=== PATIENT | female | born 1975 | race Caucasian/White ===

== ENCOUNTER 2022-10-28 17:55 | Emergency (ER) | payer BC, SELFPAY ==
[2022-10-28 17:56] VITALS: BP 176/99; PULSE 91; RESP 16; TEMP 36.5; O2SAT 99; BMI 36.6
--- NOTE | 2022-10-28 18:01 | EKG12_ITS ---
Test Reason : CP Blood Pressure : / mmHG Vent. Rate : 086 BPM Atrial Rate : 086 BPM P-R Int : 144 ms QRS Dur : 088 ms QT Int : 352 ms P-R-T Axes : 053 047 007 degrees QTc Int : 421 ms Normal sinus rhythm with sinus arrhythmia Nonspecific ST abnormality Abnormal ECG Confirmed by NJ CATHERINE ([id number]), communications editor BAR DAIGLE ([id number]) on 11/03/2022 7:32:58 AM Referred By: Jimmy Kaye Confirmed By:N[place] CATHERINE
--- NOTE | 2022-10-28 18:05 | NURSING ---
NO OLD EKGS
--- NOTE | 2022-10-28 18:10 | RAD_ITS ---
INDICATION: chest pain EXAMINATION/TECHNIQUE: X-RAY - XR Chest 1 View COMPARISON: None. FINDINGS: LINES/DEVICES: None. LUNGS: No consolidation, edema or effusion. No pneumothorax. MEDIASTINUM AND CARDIOVASCULAR STRUCTURES: Cardiac silhouette not enlarged. Central airways and mediastinal contour are unremarkable. BONES AND SOFT TISSUES: Unremarkable. RAD/Chest 1 View (Portable) IMPRESSION: No radiographic evidence of acute cardiopulmonary disease. Electronically Signed: Ab Espinal DO at 18:43 EDT ,
[2022-10-28 18:21] LABS: Absolute Lymphocyte Count 1.88 X10^3/uL (0.83-4.51); Absolute Neutrophil Count 4.7 X10^3/uL (2.0-7.7); Basophil# 0.06 X10^3/uL; Basophil% 0.8 % (0-1); Eosinophil# 0.39 X10^3/uL; Eosinophils% 4.9 % (0-5); Hematocrit 40.3 % (37-47); Hemoglobin 12.4 g/dL (12.0-15.0); Lymphocyte # 1.88 X10^3/ul (0.83-4.51); Lymphocyte % 23.6 % (19-41); Mean Corp Hgb Conc 30.8 g/dL (32-36); Mean Corpuscular Hgb 23.5 pg (27.0-32.0); Mean Corpuscular Volume 76.5 fL (81-99); Monocyte# 0.96 X10^3/uL; NRBC Flagged by Analyzer 0 % (0-5); Neutrophil # 4.65 X10^3/uL (2.7-7.7); Neutrophil % 58.3 % (47-70); Platelet Count 235 K/mm3 (150-450); RBC Distribution Width CV 16.9 % (11.6-14.6); RBC Distribution Width SD 46.3 fl (35.1-43.9); Red Blood Count 5.27 M/mm3 (4.2-5.4)
[2022-10-28] MEDS: Aspirin 81 MG TAB.CHEW 324 MG PO (18:21)
[2022-10-28 18:22] VITALS: O2SAT 97
[2022-10-28 18:39] LABS: Anion Gap 2 (5-15); BUN 10 mg/dL (7-18); BUN/Creat Ratio 12.5 RATIO (10-20); Calcium,Total 9.7 mg/dL (8.5-10.1); Chloride 110 mmol/L (98-107); EST Glomerular Filtration Rate 82 mL/min (>60); Est Glom Filt Rate - Afr Amer 99 mL/min (>60); Estimated Creatinine Clearance 79.07 ml/min; Glucose 110 mg/dL (74-106); Potassium 3.5 mmol/L (3.5-5.1); Sodium Level 139 mmol/L (136-145); Troponin-I HS 4 pg/mL (3.0-54.0)
[2022-10-28 19:08] VITALS: BP 151/77; PULSE 76; O2SAT 96
--- NOTE | 2022-10-28 19:20 | EDS_ITS ---
HPI History of Present Illness Chief Complaint: Chest Pain Informant: patient Onset/Context/Timing Onset: Days (2) Activity at onset: gradual Timing: Intermittent Location: Substernal Worsened By: Nothing Relieved By: Nothing Associated Symptoms: Positive for Palpitations; Negative for Nausea, Vomiting, Diaphoresis, Dyspnea, Cough, Fever, Lightheadedness or Acid Reflux Narrative Narrative: Patient presents with chest pain that has been intermittent over the last 2 da ys. Patient states it comes on gradually. Patient describes it as a tightness. Patient states it is over the substernal area. Patient states nothing makes it better nothing makes it worse. Patient states she does feel some palpitations at times. Patient denies any nausea or vomiting. Patient denies any diaphoresis. Patient denies any shortness of breath or cough. CVD Risk Factors: Negative for Hypertension, Diabetes, Hypercholesterolemia, Family History 1' </=55 or Smoking PE Risk Factors: Positive for Cancer; Negative for Recent Travel/Surgery, Recent Immobilization, Prior DVT or PE or OCP + Smoking + >/=35 PFSH PFSH Medical History (Updated 10/28/22 @ 19:[address] Jimmy Kaye DO) Breast cancer Hypothyroidism Allergy/AdvReac Type Severity Reaction Status Date / Time No Known Allergies Allergy Verified 10/28/22 17:57 Surgical History (Updated 10/28/22 @ 19:[address] Jimmy Kaye DO) Hx of breast biopsy Social History Smoking Status: Never smoker ROS ROS ED Constitutional Constitutional ED: Denies chills or fever(s) Eyes Eyes: Denies blurry vision or change in vision ENT ENT ED: Denies rhinorrhea or sore throat Cardiovascular Cardiovascular: Reports chest pain and palpitations Respiratory/Chest Respiratory/Chest: Denies cough or dyspnea Gastrointestinal Gastrointestinal: Denies abdominal pain, nausea or vomiting Genitourinary Genitourinary ED: Denies dysuria or hematuria Musculoskeletal Musculoskeletal: Denies back pain or neck pain Integumentary Denies abscess or rash Neurologic Neurologic: Denies headache(s) or weakness Allergic/Immunologic Allergic/Immunologic ED: Denies mouth swelling or urticaria EXAM Physical Exam Const Vital Signs: 10/28/22 17:56 10/28/22 18:22 10/28/22 18:23 Temperature 97.7 F L Temperature Source Temporal Pulse Rate 91 Respiratory Rate 16 Respiratory Effort Normal Non-Labored Blood Pressure 176/99 H Blood Pressure Mean 124 Pulse Ox 99 97 Oxygen Delivery Method Room Air Room Air 10/28/22 19:08 Temperature Temperature Source Pulse Rate 76 Respiratory Rate Respiratory Effort Blood Pressure 151/77 H Blood Pressure Mean 101 Pulse Ox 96 Oxygen Delivery Method Room Air Positive well nourished, well developed and obese General Appearance ED: well developed and NAD Nutritional Appearance: obese HEENT normocephalic and atraumatic Eyes PERRL and EOMs intact bilaterally Neck supple and no JVD Chest Wall palpation of chest normal Resp normal respiratory effort and clear to auscultation bilaterally Effort and Inspection: Negative for respiratory distress Cardio regular rate, regular rhythm and no murmurs GI normal to inspection, nondistended, normoactive bowel sounds, soft to palpation, non-tender and non-distended Extremity normal to inspection General Extremety ED: Negative for edema or tenderness General Extremity: Negative for edema Neuro oriented x3, CN's II-XII intact bilaterally and no sensory deficits noted Sensorium / Orientation: awake and alert Motor Exam: strength 5/5 throughout Psych mental status grossly normal Heart Score History: Slightly/Non-Suspicious ECG: Nonspecific Repolarization Age: >45 - <65 years Risk Factors: No Risk Factors Troponin: </= Normal Limit Score: 2 MDM MDM MDM Narrative Medical decision making narrative: Differential diagnosis includes cardiac dysrhythmia, cardiac ischemia, anxiety, musculoskeletal pain, and GERD. Patient has a Wells score of 1 and is PERC negative. I do not feel this is from a pulmonary embolism. EKG will be obtained to assess for cardiac dysrhythmia and cardiac ischemia. Chest x-ray will be obtained to assess for pneumonia and pneumothorax. CBC will be obtained to assess for anemia and leukocytosis. Basic metabolic profile will be obtained to assess for electrolyte abnormality and renal function. High-sensitivity troponin will be obtained to assess for cardiac ischemia. Lab Data Attestation: I reviewed the patient's lab results. Lab results narrative: CBC was reviewed and was within normal limits. Basic metabolic profile was reviewed and was essentially within normal limits. High-sensitivity troponin was reviewed and was normal at 4. Labs: Laboratory Results - last 24 hr 10/28/22 10/28/22 18:15 18:15 WBC 8.0 RBC 5.27 Hgb 12.4 Hct 40.3 MCV 76.5 L MCH 23.5 L MCHC 30.8 L RDW Std Deviation 46.3 H RDW Coeff of Kim 16.9 H Plt Count 235 MPV 11.0 Immature Gran % (Auto) 0.400 Neut % (Auto) 58.3 Lymph % (Auto) 23.6 [place] % (Auto) 12.0 H Eos % (Auto) 4.9 Baso % (Auto) 0.8 Absolute Neuts (auto) 4.7 Absolute Lymphs (auto) 1.88 Nucleated RBC % 0 Sodium 139 Potassium 3.5 Chloride 110 H Carbon Dioxide 27.0 Anion Gap 2 L BUN 10 Creatinine 0.80 Estim Creat Clear Calc 79.07 Est GFR (MDRD) Af Amer 99 Est GFR (MDRD) Non-Af 82 BUN/Creatinine Ratio 12.5 Glucose 110 H Calcium 9.7 Troponin I High Sens 4 Radiography Diagnostic Testing: Clinical Impression(s) from Imaging Studies Chest X-Ray 10/28/22 18:10 IMPRESSION: No radiographic evidence of acute cardiopulmonary disease. Electronically Signed: Ab Espinal DO at 18:43 EDT Reading Location ID and State: [facility] / [place] Tel [phone], Service support , Portable 1 view chest x-ray was obtained. On my independent interpretation, lung mccabe are clear. There is normal cardiac silhouette. Bony thorax is normal. There is no acute process noted. Radiologist also interpreted the x- ray and agrees. EKG Initial EKG: Attestation: I personally reviewed and interpreted this EKG as follows: Interpretation: Sinus Rhythm (86) and Non-Specific ST Changes Comments: EKG was obtained. On my independent interpretation, it showed a normal sinus rhythm with a rate of 86. DE interval, QRS interval, and QTc intervals were all normal. Marion was normal. There are nonspecific ST-T wave changes. Prior EKG tracings: not available for review Prior: No Prior Treatment and Re-Evaluation :: Patient was given aspirin here. Patient is feeling better on reevaluation. Patient was advised of her findings. Patient has a HEART score of 2. Patient was advised that this is low risk for acute cardiac event. Patient was instructed to follow-up with her primary care physician in 5 to 7 days for further evaluation. Patient understood and was agreeable with the plan. All questions were answered. Discharge Plan Triage Chief Complaint: Chest Pain ED Provider: Jimmy Kaye Dx/Rx/DC Orders Clinical Impression: Chest pain of uncertain etiology, History of cancer of left breast Instructions: ED Chest Pain, Uncertain Cause Primary Care Provider: Shaquille Hernandez Referrals: Shaquille Hernandez MD [Primary Care Provider] - 5-7 Days Disposition Disposition: Home, Self Care
== END 2022-10-28 19:46 | disposition home or self-care (01) ==
PROVIDERS: Emergency Provider Emergency Medicine; PCP Family Medicine; Referring Provider Emergency Medicine; Visit Provider Emergency Medicine
DX: R07.9 Chest pain, unspecified (principal); E66.9 Obesity, unspecified
CPT/HCPCS: 71045; 80048; 84484; 85025; 93005; 99284

== ENCOUNTER 2022-11-02 23:25 | Emergency (ER) | payer BC, SELFPAY ==
[2022-11-02 23:26] VITALS: BP 186/98; PULSE 90; RESP 16; TEMP 36.3; O2SAT 99; BMI 35.9
--- NOTE | 2022-11-02 23:45 | EKG12_ITS ---
Test Reason : CP Blood Pressure : / mmHG Vent. Rate : 082 BPM Atrial Rate : 082 BPM P-R Int : 142 ms QRS Dur : 090 ms QT Int : 374 ms P-R-T Axes : 021 035 004 degrees QTc Int : 436 ms Normal sinus rhythm Normal ECG Confirmed by NJ CATHERINE ([id number]), film editor JUSTIN HENSON ([id number]) on 11/04/2022 1:08:03 PM Referred By: QUENTIN Confirmed By:N[place] CATHERINE
[2022-11-03] MEDS: Labetalol (Prefilled) 20 MG/4 ML IV (00:12)
[2022-11-03] MEDS: 0.9% Normal Saline 1,000 ML 999 ML IV (00:12)
[2022-11-03 00:20] LABS: Absolute Lymphocyte Count 1.19 X10^3/uL (0.83-4.51); Absolute Neutrophil Count 5.6 X10^3/uL (2.0-7.7); Basophil# 0.04 X10^3/uL; Basophil% 0.5 % (0-1); Eosinophil# 0.13 X10^3/uL; Eosinophils% 1.7 % (0-5); Hematocrit 42.1 % (37-47); Hemoglobin 12.9 g/dL (12.0-15.0); Lymphocyte # 1.19 X10^3/ul (0.83-4.51); Lymphocyte % 15.8 % (19-41); Mean Corp Hgb Conc 30.6 g/dL (32-36); Mean Corpuscular Hgb 23.6 pg (27.0-32.0); Mean Platelet Vol. 11.5 fl (6.2-12.0); Monocyte# 0.62 X10^3/uL; Monocyte% 8.2 % (0-10); NRBC Flagged by Analyzer 0 % (0-5); Neutrophil # 5.56 X10^3/uL (2.7-7.7); Neutrophil % 73.7 % (47-70); Platelet Count 255 K/mm3 (150-450); RBC Distribution Width CV 16.8 % (11.6-14.6); RBC Distribution Width SD 46.5 fl (35.1-43.9); Red Blood Count 5.47 M/mm3 (4.2-5.4); White Blood Count 7.6 K/mm3 (4.4-11.0)
[2022-11-03 00:26] VITALS: BP 183/99; PULSE 79; RESP 17; O2SAT 98
[2022-11-03 00:30] LABS: International Normalized Ratio 1.1; Prothrombin Time (Protime)PT. 13.6 SECONDS (11.7-14.9)
[2022-11-03 00:31] LABS: Partial Thromboplast Time 34.8 Seconds (24.1-36.2)
[2022-11-03 00:47] LABS: Anion Gap 5 (5-15); BUN 6 mg/dL (7-18); BUN/Creat Ratio 8.5 RATIO (10-20); Calcium,Total 9.3 mg/dL (8.5-10.1); Chloride 108 mmol/L (98-107); Creatinine, Serum 0.71 mg/dL (0.55-1.02); EST Glomerular Filtration Rate 95 mL/min (>60); Est Glom Filt Rate - Afr Amer 114 mL/min (>60); Estimated Creatinine Clearance 89.09 ml/min; Glucose 127 mg/dL (74-106); Magnesium 2.5 mg/dL (1.6-2.6); Potassium 3.4 mmol/L (3.5-5.1); Sodium Level 138 mmol/L (136-145); Troponin-I HS 3 pg/mL (3.0-54.0)
[2022-11-03 01:00] VITALS: BP 143/70; PULSE 72; RESP 18; O2SAT 99
[2022-11-03 02:04] VITALS: PULSE 75; RESP 15; O2SAT 99
--- NOTE | 2022-11-03 02:04 | EX.ED.DYSGE1 ---
HPI History of Present Illness Chief Complaint: Chest Pain Narrative Narrative: Patient is a 47-year-old female with recent diagnosis of breast cancer roughly 2 weeks ago. She states that she will feel palpitations with intermittent chest pressure. She was seen on October 28 for similar event and had a negative work-up. Patient states that today she has felt the palpitations more often and the pressure has been more constant. She denies any nausea vomiting diaphoresis or shortness of breath. She states that she is also in recent diagnosed hypertension has been taking her medication as directed but the blood pressure continues high and therefore with persistently elevated blood pressure as well as the chest discomfort comes in for evaluation. [facility] Medical History (Updated 11/03/22 @ 02:[address] Guillermo Polanco DO) Breast cancer Hypothyroidism Home Medications amlodipine 5 mg tablet 5 mg PO DAILY 11/03/22 [History Last Taken Unknown] Allergy/AdvReac Type Severity Reaction Status Date / Time No Known Allergies Allergy Verified 11/02/22 23:28 Surgical History (Updated 10/28/22 @ 19:[address] Jimmy Kaye DO) Hx of breast biopsy Social History Smoking Status: Never smoker ROS [facility] ED Constitutional Constitutional ED: Denies chills or fever(s) ENT ENT ED: Denies sore throat Cardiovascular Cardiovascular: Reports chest pain and palpitations; Denies racing heartbeat Respiratory/Chest Respiratory/Chest: Denies cough or dyspnea Gastrointestinal Gastrointestinal: Denies abdominal pain, diarrhea, nausea or vomiting Genitourinary Genitourinary ED: Denies dysuria Musculoskeletal Musculoskeletal: Denies myalgias Integumentary Denies rash Neurologic Neurologic: Denies headache(s) Psychiatric Psychiatric: Reports anxiety Hematologic/Lymphatic Hematologic/Lymphatic: Denies easy bleeding or easy bruising EXAM Physical Exam Const Vital Signs: 11/02/22 23:26 11/03/22 00:26 11/03/22 01:00 Temperature 97.3 F L Temperature Source Temporal Pulse Rate 90 79 72 Respiratory Rate 16 17 18 Blood Pressure 186/98 H 183/99 H 143/70 H Blood Pressure Mean 127 127 94 Pulse Ox 99 98 99 Oxygen Delivery Method Room Air Room Air Room Air 11/03/22 02:04 Temperature Temperature Source Pulse Rate 75 Respiratory Rate 15 Blood Pressure Blood Pressure Mean Pulse Ox 99 Oxygen Delivery Method Positive well nourished and well developed General Appearance ED: well developed HEENT Reports moist mucous membranes Eyes PERRL and EOMs intact bilaterally Neck supple Chest Wall palpation of chest normal Chest Narrative: No bony deformity or crepitus Resp normal respiratory effort and clear to auscultation bilaterally Cardio regular rate and regular rhythm Rate: other Other Details: Radial pulses are plus 2 out of 4 bilaterally are equal and symmetric Carotid pulses equal and symmetric as well GI normal to inspection, nondistended, normoactive bowel sounds, non-tender, non-distended and no masses GI Narrative: No voluntary guarding or rigidity no pulsatile mass Auscultation: normoactive bowel sounds Palpation: soft Extremity normal to inspection Extremity Narrative: No asymmetric edema no pitting edema negative Homans' sign bilaterally Neuro oriented x3 and CN's II-XII intact bilaterally Sensorium / Orientation: alert Psych mental status grossly normal Skin no rashes or lesions noted MDM MDM MDM Narrative Medical decision making narrative: Patient presented to the ER hypertensive but otherwise with stable vitals. She is low risk for cardiovascular disease differential includes acute coronary syndrome pneumothorax pulmonary embolus pneumonia or atypical cardiac rhythm. Secondary to this basic blood work with a CTA was obtained. Troponin was normal at 3 and there is no need for delta based on her constant report of pain throughout the day as well as a value of 3. CT revealed no PE or dissection or pneumothorax or infection. Labs revealed no electrolyte derangements and patient had no abnormal heart rhythms while on the monitor. Also there were no signs of endorgan damage from her hypertension which was improved with medication in the ER. Therefore with negative work-up and improvement of hypertension patient is otherwise safe for discharge History & Record Review Discussion w/independent historian: Patient and Family Lab Data Attestation: I reviewed the patient's lab results. Labs: Laboratory Results - last 24 hr 11/03/22 11/03/22 11/03/22 00:03 00:03 00:03 WBC 7.6 RBC 5.47 H Hgb 12.9 Hct 42.1 MCV 77.0 L MCH 23.6 L MCHC 30.6 L RDW Std Deviation 46.5 H RDW Coeff of Kim 16.8 H Plt Count 255 MPV 11.5 Immature Gran % (Auto) 0.100 Neut % (Auto) 73.7 H Lymph % (Auto) 15.8 L [place] % (Auto) 8.2 Eos % (Auto) 1.7 Baso % (Auto) 0.5 Absolute Neuts (auto) 5.6 Absolute Lymphs (auto) 1.19 Nucleated RBC % 0 PT 13.6 INR 1.1 APTT 34.8 Sodium 138 Potassium 3.4 L Chloride 108 H Carbon Dioxide 25.0 Anion Gap 5 BUN 6 L Creatinine 0.71 Estim Creat Clear Calc 89.09 Est GFR (MDRD) Af Amer 114 Est GFR (MDRD) Non-Af 95 BUN/Creatinine Ratio 8.5 L Glucose 127 H Calcium 9.3 Magnesium 2.5 Troponin I High Sens 3 TSH 3.10 Radiography Diagnostic Testing: Clinical Impression(s) from Imaging Studies Chest CTA 11/03/22 23:43 IMPRESSION: Normal CTA chest examination, without a demonstrated pulmonary embolism or arterial dissection. No focal infiltrate. Mild lobulation of the isthmus of the thyroid measuring up to 1.2 cm allowing for technique. Could consider follow-up ultrasound for further evaluation on a routine basis. Electronically Signed: Kimberley Davies MD at 1:38 EDT Reading Location ID and State: [facility] / [place] Tel , Service support , Discharge Plan Triage Chief Complaint: Chest Pain ED Provider: Guillermo Polanco Dx/Rx/DC Orders Clinical Impression: Chest pain of uncertain etiology, Palpitation, History of cancer of left breast, Hypertension Instructions: ED Chest Pain, Uncertain Cause, ED Palpitations Prescriptions: No Action amlodipine 5 mg tablet 5 mg PO DAILY Primary Care Provider: Shaquille Hernandez Referrals: Shaquille Hernandez MD [Primary Care Provider] - Activity Restrictions/Additional Instructions: Your work-up today did not show any signs of heart damage there is no blood clot or pneumonia or hole in your lung or dissection which is a terrible blood vessel. We did not find any abnormal cardiac rhythm but if palpitations persist talk to your family doctor about a Holter monitor to continue to evaluate this. If you have any further concerns please return for repeat evaluation Disposition Disposition: Home, Self Care Discharge Date/Time: 11/03/22 02:10
--- NOTE | 2022-11-03 23:43 | CT_ITS ---
STUDY: CTA CHEST REASON FOR EXAM: Female, 47 years old. Chest pain RADIATION DOSAGE (If Supplied By Facility): CTDIvol = ( 12.48 ) mGy, DLP = ( 509.35 ) mGycm TECHNIQUE: The examination was performed with the intravenous administration of IV 100mL Isovue-370. Post-processing of the angiographic images was performed, with multiplanar reformation and 3D reconstruction. Individualized dose optimization techniques were used for this CT. COMPARISON: Chest x-ray October 28, 2022 FINDINGS: There is a mildly thickened appearance of the isthmus of the thyroid measuring 1.2 cm with mild lobulation. Normal enhancement of the main pulmonary artery and right and left pulmonary arteries. Normal enhancement of the bilateral peripheral pulmonary arteries. There is no demonstrated pulmonary embolism. Normal thoracic aorta and visualized great vessels. There is no demonstrated aortic dissection. Normal heart and pericardium. Normal mediastinum. Normal hilar regions. Normal visualized trachea and bronchi. There is minimal right middle lobe atelectasis. There are a few areas of minimal air trapping. Otherwise, Normal pulmonary parenchyma. Normal pleura. Normal chest wall structures. Normal osseous structures. There is a small splenule adjacent to the spleen measuring 7.[address]/CTA Chest W/WO Contrast IMPRESSION: Normal CTA chest examination, without a demonstrated pulmonary embolism or arterial dissection. No focal infiltrate. Mild lobulation of the isthmus of the thyroid measuring up to 1.2 cm allowing for technique. Could consider follow-up ultrasound for further evaluation on a routine basis. Electronically Signed: Kimberley Davies MD at 1:38 EDT ,
== END 2022-11-03 02:10 | disposition home or self-care (01) ==
PROVIDERS: Emergency Provider Emergency Medicine; PCP Family Medicine; Visit Provider Emergency Medicine
DX: R07.9 Chest pain, unspecified (principal); C50.912 Malignant neoplasm of unspecified site of left female breast; R00.2 Palpitations; I10 Essential (primary) hypertension; Z79.899 Other long term (current) drug therapy
CPT/HCPCS: 71275; 80048; 83735; 84443; 84484; 85025; 85610; 85730; 93005; 96361; 96374; 99283; J7030; Q9967; A4216

== ENCOUNTER 2023-02-18 02:22 | Emergency (ER) | payer BC, SELFPAY ==
[2023-02-18 02:23] VITALS: BP 126/61; PULSE 88; RESP 17; TEMP 36.3; O2SAT 99; BMI 33.7
--- NOTE | 2023-02-18 02:31 | ED.VIS.GI ---
HPI HPI - GI History of Present Illness Chief Complaint: Nausea/Vomiting Informant: patient, spouse/S.O. and EMS Narrative Narrative: Patient presenting with about 4 hours of constant vomiting and diarrhea, worse vomiting, and some occasional periumbilical abdominal cramping that has been mild, started 1 or 2 hours after taking her first Augmentin tablet. No fevers or chills. A week or 2 ago she had a left mastectomy after having a biopsy that was positive for cancer. She had her fallopian tubes either removed or tied during the same trip to the operating room. She has had a JANE drain in, and since that was the case she was on a 10-day course of an unknown antibiotic that she tolerated well. She had the surgery by a plastic surgeon in [place], and today they wanted to continue her on antibiotics due to persistent drainage into her drain more than they would like prior to removing it, since they are leaving it in they prescribed her Augmentin which her other medication was not according to her. She states that the surgical site is been doing very well, and she is not having any discomfort or redness there. She states that her abdomen is doing doing very well as well since her laparoscopic tubal surgery. [facility] Medical History (Updated 02/18/23 @ 02:[address] Ricardo Mc MD) Breast cancer Hypothyroidism Home Medications amlodipine 5 mg tablet 5 mg PO DAILY 11/03/22 [History Last Taken Unknown] cephalexin 500 mg capsule 500 mg PO TID #21 CAPSULES 02/18/23 [Rx Last Taken Unknown] ondansetron 4 mg disintegrating tablet 8 mg (2 x 4 mg) PO Q8H PRN PRN Nausea #15 tabs 02/18/23 [Rx Last Taken Unknown] Allergy/AdvReac Type Severity Reaction Status Date / Time No Known Allergies Allergy Verified 11/02/22 23:28 Surgical History (Updated 02/18/23 @ 02:[address] Ricardo Mc MD) History of left mastectomy Hx of breast biopsy Social History Smoking Status: Never smoker ROS ROS ED Constitutional Constitutional ED: Denies chills or fever(s) Eyes Eyes: Denies change in vision or diplopia ENT ENT ED: Denies rhinorrhea or sore throat Cardiovascular Cardiovascular: Denies chest pain or palpitations Respiratory/Chest Respiratory/Chest: Denies cough or dyspnea Gastrointestinal Gastrointestinal: Reports abdominal pain, diarrhea, nausea and vomiting Genitourinary Genitourinary ED: Denies dysuria or hematuria Musculoskeletal Musculoskeletal: Denies back pain or neck pain Integumentary Denies abscess or rash Neurologic Neurologic: Denies headache(s), paresthesias or weakness Psychiatric Psychiatric: Denies anxiety or suicidal thoughts EXAM Physical Exam Const Vital Signs: 02/18/23 02:23 Temperature 97.4 F L Temperature Source Temporal Pulse Rate 88 Respiratory Rate 17 Blood Pressure 126/61 H Blood Pressure Mean 82 Pulse Ox 99 Oxygen Delivery Method Room Air Positive well nourished and well developed General Appearance ED: well developed and NAD HEENT Reports moist mucous membranes normocephalic and atraumatic Eyes PERRL and EOMs intact bilaterally Neck full ROM and supple Chest Wall Chest Narrative: Left mastectomy drain site benign, JANE drain in place, with about 10 cc of serosanguineous nonpurulent fluid within the vacuum bulb Resp normal respiratory effort and clear to auscultation bilaterally Cardio regular rate, regular rhythm and no murmurs GI non-tender and non-distended GI Narrative: Laparoscopic surgical incisions appear benign without dehiscence, erythema/cellulitis/bleeding, or tenderness. Auscultation: normoactive bowel sounds Palpation: soft Back/Spine no CVA tenderness General Back: other FROM Extremity normal to inspection General Extremety ED: Negative for edema, pulses abnormal or tenderness General Extremity: Negative for edema or pulses abnormal Neuro oriented x3, CN's II-XII intact bilaterally and no sensory deficits noted Sensorium / Orientation: awake and alert Motor Exam: strength 5/5 throughout Psych mental status grossly normal and thought process normal Skin no rashes or lesions noted MDM MDM MDM Narrative Medical decision making narrative: Patient was given a liter of IV fluids in addition to Zofran followed by an oral dicyclomine for the cramping. She felt much better on reevaluation is able to tolerate oral fluids. I suspect that this was gastritis due to the Augmentin. She does have a leukocytosis, certainly we considered advanced imaging of her abdomen, but given her benign exam I do not think that is indicated right now just close outpatient follow-up. I am happy to switch her antibiotic, however she does not know what she was on before. I will prescribe her cephalexin, and gave her a paper prescription, she does not have an active infection so I do not think she needs more antibiotics emergently, rather she can call her surgeon in the morning so that she can get a prescription for what ever she had before or what ever else he/she chooses, but at least she will have the prescription for cephalexin as a backup in case she cannot get anything else in the next 1 or 2 days. Also prescribing Zofran. She is comfortable with the plan. Lab Data Attestation: I reviewed the patient's lab results. Labs: Laboratory Results - last 24 hr 02/18/23 02:50 WBC 17.3 H RBC 5.20 Hgb 12.8 Hct 41.1 MCV 79.0 L MCH 24.6 L MCHC 31.1 L RDW Std Deviation 44.6 H RDW Coeff of Kim 15.6 H Plt Count 253 MPV 10.8 Immature Gran % (Auto) 0.300 Neut % (Auto) 92.0 H Lymph % (Auto) 2.2 L [place] % (Auto) 4.7 Eos % (Auto) 0.5 Baso % (Auto) 0.3 Absolute Neuts (auto) 15.9 H Absolute Lymphs (auto) 0.38 L Nucleated RBC % 0 Differential Comment SCANNED Sodium 138 Potassium 3.2 L Chloride 107 Carbon Dioxide 20.0 L Anion Gap 11 BUN 14 Creatinine 1.13 H Estim Creat Clear Calc 55.98 Est GFR (MDRD) Af Amer 67 Est GFR (MDRD) Non-Af 55 L BUN/Creatinine Ratio 12.4 Glucose 137 H Calcium 9.3 Total Bilirubin 0.60 AST 16 ALT 25 Alkaline Phosphatase 63 Total Protein 8.1 Albumin 4.0 Globulin 4.1 Albumin/Globulin Ratio 1.0 Discharge Plan Triage Chief Complaint: Nausea/Vomiting ED Provider: Ricardo Mc Dx/Rx/DC Orders Clinical Impression: Acute gastritis without bleeding Instructions: ED Gastritis (Adult) Prescriptions: New cephalexin [cephalexin] 500 mg capsule 500 mg PO TID Qty: 21 0RF ondansetron [ondansetron] 4 mg tablet,disintegrating 8 mg PO Q8H PRN PRN (Reason: Nausea) Qty: 15 0RF No Action amlodipine 5 mg tablet 5 mg PO DAILY Primary Care Provider: Shaquille Hernandez Referrals: Surgeon, your [Other] (call today for prescription and/or instructions for follow up; if cephalexin is OK with them, you can fill and take the prescription we gave you.) Shaquille Hernandez MD [Primary Care Provider] - Disposition Disposition: Home, Self Care Discharge Date/Time: 02/18/23 04:22
[2023-02-18] MEDS: Ondansetron 4 MG/2 ML Vial IV (02:47)
[2023-02-18] MEDS: Dicyclomine 10 MG Capsule 20 MG PO (02:47)
[2023-02-18] MEDS: 0.9% Normal Saline 1,000 ML 999 ML IV (02:47)
[2023-02-18 02:56] LABS: Absolute Lymphocyte Count 0.38 X10^3/uL (0.83-4.51); Absolute Neutrophil Count 15.9 X10^3/uL (2.0-7.7); Basophil# 0.05 X10^3/uL; Basophil% 0.3 % (0-1); Eosinophil# 0.08 X10^3/uL; Eosinophils% 0.5 % (0-5); Hematocrit 41.1 % (37-47); Hemoglobin 12.8 g/dL (12.0-15.0); Lymphocyte # 0.38 X10^3/ul (0.83-4.51); Lymphocyte % 2.2 % (19-41); Mean Corp Hgb Conc 31.1 g/dL (32-36); Mean Corpuscular Hgb 24.6 pg (27.0-32.0); Mean Platelet Vol. 10.8 fl (6.2-12.0); Monocyte# 0.82 X10^3/uL; Monocyte% 4.7 % (0-10); NRBC Flagged by Analyzer 0 % (0-5); Neutrophil # 15.91 X10^3/uL (2.7-7.7); POSITIVE DIFFERENTIAL YES; Platelet Count 253 K/mm3 (150-450); RBC Distribution Width CV 15.6 % (11.6-14.6); RBC Distribution Width SD 44.6 fl (35.1-43.9); White Blood Count 17.3 K/mm3 (4.4-11.0)
[2023-02-18 03:13] LABS: AST(SGOT) 16 U/L (15-37); Alanine Aminotransfer ALT/SGPT 25 U/L (13-56); Alkaline Phosphatase 63 U/L (45-117); Anion Gap 11 (5-15); BUN 14 mg/dL (7-18); BUN/Creat Ratio 12.4 RATIO (10-20); Calcium,Total 9.3 mg/dL (8.5-10.1); Chloride 107 mmol/L (98-107); Creatinine, Serum 1.13 mg/dL (0.55-1.02); EST Glomerular Filtration Rate 55 mL/min (>60); Est Glom Filt Rate - Afr Amer 67 mL/min (>60); Estimated Creatinine Clearance 55.98 ml/min; Globulin 4.1 g/dL (2.2-4.2); Glucose 137 mg/dL (74-106); Potassium 3.2 mmol/L (3.5-5.1); Protein, Total 8.1 g/dL (6.4-8.2); Sodium Level 138 mmol/L (136-145)
[2023-02-18 03:41] LABS: Differential Indicated SCAN CRITERIA MET
[2023-02-18 04:42] LABS: Differential Comment SCANNED
== END 2023-02-18 04:22 | disposition home or self-care (01) ==
LOC: ED 03:27
PROVIDERS: Emergency Provider Emergency Medicine; PCP Family Medicine; Visit Provider Emergency Medicine
DX: K29.00 Acute gastritis without bleeding (principal)
CPT/HCPCS: 80053; 85025; 96361; 96374; 99285; J2405